=== PATIENT | female | born 1965 | race Caucasian/White ===

== ENCOUNTER 2016-09-15 09:03 | Emergency (ER) | payer OTHER | END 2016-09-15 09:08 | disposition left against medical advice (07) | LOC: CED 09:03 | DX: Z53.21 Procedure and treatment not carried out due to patient leaving prior to being seen by health care provider (principal) ==

== ENCOUNTER 2017-05-02 02:52 | Inpatient (IN) | payer OTHER ==
[2017-05-02] MEDS ORDERED: NS 1,000 ML IV ONE (03:09)
[2017-05-02] MEDS ORDERED: FAMOTIDINE 20 MG/NACL 50 ML IV ONE (03:15)
[2017-05-02] MEDS ORDERED: KETOROLAC 15 MG/1 ML SDV IVP ONE (03:15)
[2017-05-02] MEDS ORDERED: ONDANSETRON 4 MG/2 ML VIAL IVP ONE (03:15)
[2017-05-02 03:23] LABS: PLATELET COUNT 318 10^3/uL (150-400)
--- NOTE | 2017-05-02 05:20 | EDPHY ---
H & P Stated Complaint: GALLBLADDER ATTACK ACID REFLUS AND BURNING THROAT Time Seen by Provider: 05/02/17 03:06 HPI/ROS: HPI The patient presents with right upper quadrant pain, nausea. The patient has had intermittent right upper quadrant pain after meals for the last 6 months which she has self-diagnosed as "gallbladder attacks". Today, she ate chicken salad at noon. At about 4:00 p.m. she began to experience right upper quadrant abdominal pain which lasted until about 10:00 p.m.. She is able to sleep for a few hours and then awoke at midnight with more severe pain which radiated into her throat and feels like a burning sensation. She feels nauseated and is not able to take anything by mouth. She has not vomited. Her pain is now continuous and is improved when she sits up. REVIEW OF SYSTEMS Constitutional: No fever, no chills. Eyes: No discharge. ENT: No sore throat. Cardiovascular: No chest pain, no palpitations. Respiratory: No cough, no shortness of breath. Gastrointestinal: See HPI Genitourinary: No hematuria. Musculoskeletal: No back pain. Skin: No rashes. Neurological: No headache. PMHx: Obesity, has not seen a medical doctor in 4 years Soc Hx: Lives at home with PHYSICAL General Appearance: Alert, no distress Eyes: Pupils equal and round no pallor or injection ENT, Mouth: Mucous membranes moist Respiratory: There are no retractions, lungs are clear to auscultation Cardiovascular: Regular rate and rhythm Gastrointestinal: Abdomen is soft with mild tenderness in the epigastrium and right upper quadrant Neurological: A&O, moves all extremities Skin: Warm and dry, no rashes Musculoskeletal: Neck is supple non tender Extremities: symmetrical, full range of motion Psychiatric: Patient is oriented X 3, there is no agitation Source: Patient Exam Limitations: No limitations - Personal History LMP (Females 10-55): Hysterectomy Current Tetanus/Diphtheria Vaccine: Unsure Current Tetanus Diphtheria and Acellular Pertussis (TDAP): Unsure - Medical/Surgical History Hx Asthma: No Hx Chronic Respiratory Disease: No Hx Diabetes: No Hx Cardiac Disease: No Hx Renal Disease: No Hx Cirrhosis: No Hx Alcoholism: No Hx HIV/AIDS: No Hx Splenectomy or Spleen Trauma: No Other PMH: PARTIAL HYSTERECTOMY - Social History Smoking Status: Never smoked Constitutional: Initial Vital Signs Temperature (C) 36.8 C 05/02/17 02:58 Heart Rate 90 05/02/17 02:58 Respiratory Rate 18 05/02/17 02:58 Blood Pressure 142/95 H 05/02/17 02:58 O2 Sat (%) 95 05/02/17 02:58 O2 Delivery Mode Room Air O2 (L/minute) 2 Allergies/Adverse Reactions: iodine Allergy (Verified 05/03/17 15:11) Itching metronidazole [From Flagyl] Allergy (Verified 05/03/17 15:11) Itching Home Medications: Medication Instructions Recorded Acetaminophen [Tylenol 325mg (*)] 650 mg PO DAILY PRN 05/02/17 Herbals/Supplements -Info Only 1 ea PO DAILY 05/02/17 Medical Decision Making - Diagnostics Imaging Results: Imaging Impressions Fluoroscopy 05/03/17 08:59 Impression: Intraoperative fluoroscopy, as above. Lumbar Spine CT 05/03/17 11:01 Impression: 1. Mild disk space narrowing with anterior marginal osteophytes lower thoracic spine. 2. No disk bulge or protrusion. 3. Facet hypertrophy most prominent at L5-S1 with associated mild bilateral neural foraminal stenoses. 4. Left renal nonobstructive nephrolithiasis. 5. Incidental left adrenal adenoma. Consider endocrine consult for 24 hour urinary free cortisol or dexamethasone suppression test, 24 hour urinary metanephrines and catecholamines and if hypertensive, plasma aldosterone and plasma renin levels. If symptoms worsen, additional imaging may be necessary. 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 On exam, she is certainly uncomfortable appearing with epigastric tenderness. Differential diagnosis includes biliary colic, cholecystitis, gastritis, chronic pain is a consideration given her history. In the emergency department, patient received pain medication. Basic labs were checked and were unremarkable. I consulted with the on-call general surgeon Dr. Nevarez who will see the patient in consultation. She does think that the patient may require in-patient: Cystectomy. We will hold the patient's anticoagulant. I consulted with the hospitalist Dr. Wright who will admit the patient. - Data Points Laboratory Results: Laboratory Results 05/02/17 03:18 05/02/17 03:18 Medications Given: Acetaminophen (Tylenol) 650 mg PO Q4HRS PRN PRN Reason: Pain, Mild/Fever, Can Take PO Stop: 10/29/17 05:26 Last Admin: 05/03/17 01:47 Dose: 650 mg Cyclobenzaprine HCl (Flexeril) 10 mg PO TID PRN PRN Reason: pain Stop: 10/30/17 08:59 Last Admin: 05/03/17 06:20 Dose: 10 mg Hydromorphone HCl (Dilaudid) 2 mg PO Q4HRS PRN PRN Reason: Pain, Severe Able to Take PO Stop: 05/12/17 05:26 Last Admin: 05/03/17 21:53 Dose: 2 mg Hydromorphone HCl (Dilaudid) 0.2 - 0.4 mg IVP Q4HRS PRN PRN Reason: Pain, Severe Unable to Take PO Stop: 05/12/17 05:26 Last Admin: 05/03/17 07:05 Dose: 0.4 mg Sodium Chloride (Ns) 1,000 mls @ 100 mls/hr IV CONT ROD Stop: 10/29/17 06:59 Last Admin: 05/03/17 18:45 Dose: 1,000 mls Ketorolac Tromethamine (Toradol) 15 mg IVP Q6HRS ROD Stop: 05/08/17 17:59 Last Admin: 05/03/17 18:41 Dose: 15 mg Lorazepam (Ativan Injection) 0.5 mg IV Q4 PRN PRN Reason: ANXIETY Stop: 10/30/17 08:33 Last Admin: 05/03/17 09:12 Dose: 0.5 mg Ondansetron HCl (Zofran) 4 mg IVP Q4HRS PRN PRN Reason: Nausea/Vomiting, Can't Take PO Stop: 10/29/17 05:26 Last Admin: 05/03/17 07:35 Dose: 4 mg Zolpidem Tartrate (Ambien) 5 mg PO HS PRN PRN Reason: Sleep/Insomnia Stop: 10/29/17 18:09 Last Admin: 05/03/17 01:47 Dose: 5 mg Discontinued Medications Bupivacaine HCl (Sensorcaine 0.25% Sdv) Confirm Administered Dose 30 ml .ROUTE .[facility] ONE Stop: 05/03/17 10:47 Last Admin: 05/03/17 16:21 Dose: 30 ml Fentanyl (Sublimaze) 25 - 100 mcg IVP Q5M PRN PRN Reason: PACU, IMMEDIATE Pain control Stop: 05/03/17 18:29 Last Admin: 05/03/17 18:04 Dose: 50 mcg Sodium Chloride (Ns) 1,000 mls @ 0 mls/hr IV EDNOW ONE; Wide Open PRN Reason: Protocol Stop: 05/02/17 03:10 Last Admin: 05/02/17 03:21 Dose: 1,000 mls Famotidine/Sodium Chloride (Pepcid 20 Mg (Premix)) 50 mls @ 200 mls/hr IV EDNOW ONE Stop: 05/02/17 03:29 Last Admin: 05/02/17 03:23 Dose: 50 mls Lactated Ringer's (Lr) 1,000 mls @ 0 mls/hr IV ONCE ONE PRN Reason: KVO Stop: 05/03/17 15:10 Last Admin: 05/03/17 18:31 Dose: Not Given Iopamidol (Isovue-M 300) Confirm Administered Dose 30 ml .ROUTE .[facility]-MED ONE Stop: 05/03/17 11:02 Last Admin: 05/03/17 16:20 Dose: 30 ml Ketorolac Tromethamine (Toradol) 15 mg IVP EDNOW ONE Stop: 05/02/17 03:16 Last Admin: 05/02/17 03:23 Dose: 15 mg Lorazepam (Ativan Injection) 1 mg IVP ONCE ONE Stop: 05/02/17 12:01 Last Admin: 05/02/17 11:59 Dose: 1 mg Midazolam HCl (Versed) 2 mg IVP ONCALL ONE Stop: 05/03/17 15:49 Last Admin: 05/03/17 15:52 Dose: 2 mg Ondansetron HCl (Zofran) 4 mg IVP EDNOW ONE Stop: 05/02/17 03:16 Last Admin: 05/02/17 03:23 Dose: 4 mg Departure - Departure Disposition: [facility] Acute Clinical Impression: Porcelain gallbladder, Epigastric abdominal pain Condition: Fair
[2017-05-02] MEDS ORDERED: HYDROmorphONE/DILAUDID 2 MG TAB PO PRN (05:27)
[2017-05-02] MEDS ORDERED: HYDROmorphONE/DILAUDID 1 MG/ML INJ IVP PRN (05:27)
[2017-05-02] MEDS ORDERED: ONDANSETRON DISINTEGRATING 4 MG TAB PO PRN (05:27)
[2017-05-02] MEDS ORDERED: ACETAMINOPHEN 325 MG TAB PO PRN (05:27)
[2017-05-02] MEDS ORDERED: ONDANSETRON 4 MG/2 ML VIAL IVP PRN (05:27)
--- NOTE | 2017-05-02 05:48 | PDGENHP ---
History and Physical - Chief Complaint Abdominal pain - History of Present Illness 51 yo F w/ no significant PMHx presents with abdominal pain. Patient states she had lunch around noon (chicken salad sandwich). Then, around 4 PM, she had severe RUQ abdominal pain that she describes as worse than childbirth. She has had similar pain before and has been told it was gallbladder related. In the ED RUQ US was notable for significant gallstone burden without clear signs of cholecystitis. However, LFTs notable for significant hepatic inflammation of uncertain etiology. Patient is being admitted for surgical consultation and further work-up. History Information - Allergies/Home Medication List Allergies/Adverse Reactions: iodine Allergy (Verified 05/02/17 03:00) metronidazole [From Flagyl] Allergy (Verified 05/02/17 03:00) Home Medications: NK [No Known Home Meds] 05/02/17 [Last Taken Unknown] I have personally reviewed and updated: family history, medical history - Past Medical History no pertinent PMH - Family History Additional family history: Adopted, does not know family history - Social History Smoking Status: Never smoked Review of Systems Review of Systems: ROS: 10pt was reviewed & negative except for what was stated in HPI & below Physical Exam Physical Exam: Temp Pulse Resp BP Pulse Ox 36.8 C 75 16 149/103 H 95 05/02/17 02:58 05/02/17 04:59 05/02/17 04:59 05/02/17 04:59 05/02/17 04:59 Constitutional: no apparent distress, not in pain Eyes: PERRL, EOMI Ears, Nose, Mouth, Throat: moist mucous membranes, no oral mucosal ulcers Cardiovascular: regular rate and rhythym, no murmur, rub, or gallop Respiratory: no respiratory distress, clear to auscultation Gastrointestinal: normoactive bowel sounds, soft, non-tender abdomen, No gillis' s sign Skin: warm, normal color Musculoskeletal: full muscle strength, no muscle tenderness Neurologic: AAOx3, CN II-XII Intact Psychiatric: interacting appropriately, not anxious Lab Data & Imaging Review 05/02/17 03:18 05/02/17 03:18 WBC 5.66 10^3/uL (3.80-9.50) 05/02/17 03:18 RBC 5.36 10^6/uL (4.18-5.33) H 05/02/17 03:18 Hgb 16.3 g/dL (12.6-16.3) 05/02/17 03:18 Hct 48.3 % (38.0-47.0) H 05/02/17 03:18 MCV 90.1 fL (81.5-99.8) 05/02/17 03:18 MCH 30.4 pg (27.9-34.1) 05/02/17 03:18 MCHC 33.7 g/dL (32.4-36.7) 05/02/17 03:18 RDW 13.4 % (11.5-15.2) 05/02/17 03:18 Plt Count 318 10^3/uL (150-400) 05/02/17 03:18 MPV 9.2 fL (8.7-11.7) 05/02/17 03:18 Neut % (Auto) 63.3 % (39.3-74.2) 05/02/17 03:18 Lymph % (Auto) 27.4 % (15.0-45.0) 05/02/17 03:18 [place] % (Auto) 8.0 % (4.5-13.0) 05/02/17 03:18 Eos % (Auto) 0.5 % (0.6-7.6) L 05/02/17 03:18 Baso % (Auto) 0.4 % (0.3-1.7) 05/02/17 03:18 Nucleat RBC Rel Count 0.0 % (0.0-0.2) 05/02/17 03:18 Absolute Neuts (auto) 3.59 10^3/uL (1.70-6.50) 05/02/17 03:18 Absolute Lymphs (auto) 1.55 10^3/uL (1.00-3.00) 05/02/17 03:18 Absolute Monos (auto) 0.45 10^3/uL (0.30-0.80) 05/02/17 03:18 Absolute Eos (auto) 0.03 10^3/uL (0.03-0.40) 05/02/17 03:18 Absolute Basos (auto) 0.02 10^3/uL (0.02-0.10) 05/02/17 03:18 Absolute Nucleated RBC 0.00 10^3/uL (0-0.01) 05/02/17 03:18 Immature Gran % 0.4 % (0.0-1.1) 05/02/17 03:18 Immature Gran # 0.02 10^3/uL (0.00-0.10) 05/02/17 03:18 Sodium 144 mEq/L (135-145) 05/02/17 03:18 Potassium 4.4 mEq/L (3.5-5.2) 05/02/17 03:18 Chloride 103 mEq/L (97-110) 05/02/17 03:18 Carbon Dioxide 24 mEq/l (22-31) 05/02/17 03:18 Anion Gap 17 mEq/L (8-16) H 05/02/17 03:18 BUN 14 mg/dL (7-23) 05/02/17 03:18 Creatinine 0.6 mg/dL (0.6-1.0) 05/02/17 03:18 Estimated GFR > 60 05/02/17 03:18 Glucose 117 mg/dL (70-100) H 05/02/17 03:18 Calcium 10.1 mg/dL (8.5-10.4) 05/02/17 03:18 Total Bilirubin 2.5 mg/dL (0.1-1.4) H 05/02/17 03:18 Conjugated Bilirubin 1.4 mg/dL (0.0-0.5) H 05/02/17 03:18 Unconjugated Bilirubin 1.1 mg/dL (0.0-1.1) 05/02/17 03:18 AST 2077 IU/L (14-46) H 05/02/17 03:18 ALT 1180 IU/L (9-52) H 05/02/17 03:18 Alkaline Phosphatase 167 IU/L (38-126) H 05/02/17 03:18 Total Protein 8.3 g/dL (6.3-8.2) H 05/02/17 03:18 Albumin 4.6 g/dL (3.5-5.0) 05/02/17 03:18 Lipase 277 IU/L (23-300) 05/02/17 03:18 Imaging Review: RUQ U/S, preliminary read: CHOLELITHIASIS WITH GB COMPLETELY FILLED WITH 3 LARGE GALLSTONES, MILD WALL THICK AT 3MM NO PERICHOLECYSTIC FLUID CBD BORDERLINE AT 6MM HEPATOMEGALY AND HEPATIC STEATOSIS DISCUSSED WITH DR TOLENTINO AT 0450 Assessment & Plan Assessment: 51 yo F presenting with abdominal pain and abnormal LFTs. Plan: 1. Abdominal pain - Most likely related to gallstones noting clinical picture and U/S results revealing heavy gallstone burden. Does also have significant transaminitis of unclear significance. No infectious signs or symptoms currently to suggest cholangitis. - Dilaudid PRN for pain control - mIVF, maintain NPO - Surgery consulted, appreciate assistance 2. Abnormal LFTs - Significant transaminitis with mild elevation in bilirubin. Unclear etiology; possible related to above but would be atypical presentation. Choledocholithiasis and cholangitis are other possibilities but deemed less likely at least at this point. RUQ U/S did show hepatomegaly and fatty liver so this may be playing a role. - GI consultation - Would monitor bilirubin and consider ERCP if rising - APAP level, acute hep panel for brief additional work-up Diet - NPO Code - Full Ppx - SCDs Dispo - Admit to observation status
[2017-05-02] MEDS: NS 1,000 ML IV SCH ×2 (07:12→17:52)
--- NOTE | 2017-05-02 08:41 | HOSPPROG ---
Hospitalist Progress Note Assessment/Plan: I Patient is a 51-year-old female who presented with abdominal pain and elevated liver enzymes. * abdominal pain -most likely related to gallstones -ultrasound reveals cholelithiasis with gallbladder completely filled with 3 large gallstones, no hal cholecystic fluid common bile duct borderline at 6 mm with associated hepatomegaly and hepatic steatosis -reviewed her care with surgery they, they will see her * elevated liver enzymes -spoke to GI and the recommendation is to get an MRCP -hepatitis panel pending -Tylenol level stable *Diet - NPO Plan: reviewed her care with Dr Shearer and Dr Mendiola, will get an MRCP. >30 minutes today talking with patient and coordinating her care. Subjective: Antionette is feeling much better today, no complaints, abdominal pain is much improved. Objective: Vital Signs Temp Pulse Resp BP Pulse Ox 36.7 C 70 16 143/89 H 92 05/02/17 07:22 05/02/17 07:22 05/02/17 07:22 05/02/17 07:22 05/02/17 07:22 05/01/17 05/02/17 05/03/17 05:59 05:59 05:59 Intake Total 1000 Balance 1000 - Physical Exam Constitutional: no apparent distress, appears nourished Eyes: PERRL Ears, Nose, Mouth, Throat: hearing normal Respiratory: no respiratory distress Gastrointestinal: normoactive bowel sounds Skin: warm Neurologic: AAOx3 Psychiatric: interacting appropriately ICD10 Worksheet Patient Problems: Problems Problem Status Onset Cholecystitis Acute Transaminitis Acute
--- NOTE | 2017-05-02 10:08 | GCON ---
[f rep st] CONSULTATION DATE OF CONSULTATION: 05/02/2017 CHIEF COMPLAINT: Abdominal pain. HISTORY OF PRESENT ILLNESS: This is a 51-year-old female, who presented to the hospital early this morning complaining of persistent right upper quadrant pain. The patient states that she was in her usual state of health, ate a chicken salad sandwich for lunch, and approximately early afternoon began to have some persistent right upper quadrant pain which persisted through the night which prompted her presentation here. She states that in addition to this attack she has had 2 similar attacks over the last 2 months, all limited over time and got better with no oral intake. She states in addition to the pain which she initially described as epigastric in nature without radiation, 7/ 10 in intensity, described as a sharp, colicky type pain, she denies having any nausea or vomiting. She also denies having fevers or chills. She states that this episode is similar to the one she has had in the past although it lasted longer and it is more painful. PAST MEDICAL HISTORY: Uterine adenomyosis. PAST SURGICAL HISTORY: Breast augmentation, subsequent breast implant removal and laparoscopic hysterectomy, ovarian sparing. MEDICATIONS: Reviewed. FAMILY HISTORY: Noncontributory. The patient is adopted. SOCIAL HISTORY: Denies illicit drug use. No recent rare food. Does not use IV drugs. Does not abuse alcohol. REVIEW OF SYSTEMS: A full 10-point review of systems was performed. PHYSICAL EXAM: VITAL SIGNS: Temperature 36.7, blood pressure 143/89, heart rate of 70 and she is 92% on room air. CONSTITUTIONAL: She is in no apparent distress. She is comfortable. EYES: Her pupils are equal, round, and reactive to light and accommodation. She has anicteric sclerae. EARS, NOSE, MOUTH, THROAT: She has moist mucous membranes. Her hearing is normal. She has no oral mucosal ulcers. CARDIOVASCULAR: She has a regular rate and rhythm without murmurs. RESPIRATORY: She has no respiratory distress, rales, or rhonchi. GI: She has normoactive bowel sounds. She is soft, nondistended, nontender. Negative Angel sign. SKIN: Warm, normal color, no rashes. MUSCULOSKELETAL: Full strength. No muscle tenderness. Normal joint range of motion. NEUROLOGIC: She is alert and oriented x3. Her cranial nerves 2-12 are intact. She has no weakness or numbness. PSYCH: She is interacting appropriately. She does not appear anxious and she is not encephalopathic. LYMPH, HEME AND IMMUNOLOGIC: She has no cervical, groin or supraclavicular lymphadenopathy appreciated. MEDICAL DECISION MAKING: White blood cell count normal at 5, H and H stable at 16 and 48. Her platelets are 318. Chemistries are significant for an elevated glucose at 117, an elevated total bilirubin at 2.5, mostly conjugated at 1.4. AST of 2077 and an ALT of 1180 with an elevated alkaline phosphatase at 167. Toxicology is negative for acute acetaminophen intoxication. Her hepatitis panel is currently pending. IMAGING: Abdominal ultrasound which was personally reviewed by me which shows multiple large gallstones within the gallbladder wall, normal gallbladder wall thickening, no pericholecystic fluid, borderline enlargement of the common bile duct at 6 mm without any other significant findings. ASSESSMENT AND PLAN: A 51-year-old female with acute right upper quadrant pain and acute hepatitis. I told the patient that I reviewed her films and discussed them with her in her hospital room this morning. I told her it would be rare to have drastic elevations in AST and ALT with gallstone disease and will have GI evaluate her for possible choledocholithiasis and other entities. Given her history of multiple attacks within the last month she likely does have biliary colic versus cholecystitis and will need cholecystectomy after we get a better idea what is causing her enzyme elevation. Will follow, plan cholecystectomy this admission when appropriate. /[id number]/MODL MTDD
[2017-05-02] MEDS ORDERED: GADOBUTROL 10 ML VIAL IVP ONE (11:35)
[2017-05-02] MEDS ORDERED: LORazepam 2 MG/ML INJ IVP ONE (12:00)
--- NOTE | 2017-05-02 13:14 | GCON ---
[f rep st] CONSULTATION GASTROINTESTINAL CONSULTATION DATE OF CONSULTATION: 05/02/2017 REASON FOR CONSULTATION: Epigastric abdominal pain with abnormal liver enzymes. HISTORY OF PRESENT ILLNESS: Antionette is a 51-year-old female previously in good health, who was admitted to the hospital early this morning with a 6 hour history of acute onset of severe epigastric abdominal pain. This resolved after hospitalization. She has had previous episodes of this right upper quadrant abdominal pain that have passed on their own. She denies any alcohol consumption, any dietary supplements, vitamins, or herbs. She has never had a history of hepatitis. I was asked by Bere Mendes NP to see the patient for further evaluation. MEDICATIONS: She was on no medications prior to admission. ALLERGIES: Allergic to iodine and metronidazole. PAST MEDICAL HISTORY: Unremarkable. PAST SURGICAL HISTORY: Is negative. She has had no prior screening colonoscopy. FAMILY HISTORY: Unknown as she is adopted. SOCIAL HISTORY: She does not smoke tobacco or drink alcohol. She denies any nonsteroidal anti-inflammatory drug use. REVIEW OF SYSTEMS: Other than the HPI, were negative for comprehensive review of systems. PHYSICAL EXAMINATION: VITAL SIGNS: On my examination today, temperature is 37.1 Celsius, pulse 71 regular, blood pressure 153/97, respiratory rate is 16, O2 saturation 96% on room air. GENERAL: A well-developed, mildly obese female in no apparent distress. INTEGUMENT: Clear. HEENT: Head atraumatic, normocephalic. Pupils equal, round, reactive to light. EOMs intact. Sclerae nonicteric. Nares patent. Mucous membranes moist. Dentition good. NECK: Supple. Trachea midline. LYMPHATICS: No cervical or axillary adenopathy. PULMONARY: Lungs clear to percussion and auscultation. CARDIOVASCULAR: Regular rhythm rate. Normal S1, S2 without murmur. Peripheral pulses strong bilaterally. No pedal edema. GASTROINTESTINAL: Abdomen supple. Positive bowel sounds. Mildly obese. No liver or spleen tip palpable. No masses or tenderness noted. No rebound tenderness is noted. EXTREMITIES: Without deformities. NEUROLOGIC: Patient was alert, oriented x3. There are no focal neurologic deficits. LABS: White count 5.66, hemoglobin 16.3, hematocrit 48.3, platelets 318,000. Electrolytes normal with the exception of anion gap of 17 and glucose was 117. Total bilirubin 2.5, conjugated 1.4, unconjugated 1.1. AST 2077, ALT 1180, ALP 167, albumin 4.6, lipase 277. Acetaminophen level less than 10. Hepatitis A, B and C serologies pending. Right upper quadrant ultrasound revealed cholelithiasis with gallbladder wall thickening. There are 3 dominant gallstones in the gallbladder fossa measuring up to 1.8 cm. The common bile duct was measured at 6 mm in maximal diameter. There was some mild hepatomegaly and hepatic steatosis. IMPRESSION: 1. Right upper quadrant abdominal pain, cholelithiasis and thickened gallbladder wall consistent with acute cholecystitis/cholelithiasis. 2. Elevated bilirubin and marked elevated AST and ALT, atypical presentation for acute cholecystitis, albeit does not exclude the same. Differential diagnosis includes acute viral hepatitis, less likely contributing factors would be fatty liver. 3. Common bile duct of 6 mm without evidence of common bile duct stone on ultrasound, still could represent a small common bile duct stone. RECOMMENDATIONS: 1. MRCP. 2. Viral serology. 3. If common bile duct stone noted on MRCP, we will proceed with ERCP, papillotomy and stone extraction. 4. If MRCP is unrevealing and viral serology negative, would recommend surgical intervention with laparoscopic cholecystectomy. /[id number]/MODL MTDD
--- NOTE | 2017-05-02 14:47 | ASMTCMCOM ---
CM Note CM Note Notes: Spoke w/RN, anticipate pt will dc home w/support of her when medically stable. CM available for any changes. DC Plan: Home independent Date Signed: 05/02/2017 02:46 PM Electronically Signed By:Karla Garcia RN
--- NOTE | 2017-05-02 15:13 | SOAPPROG ---
[facility] Progress Note Assessment/Plan: Assessment/Plan: - reviewed MR results. No choledocholithiasis or other obstructive findings - plan will be to await hepatitis panel results, allow liver enzymes to downtrend. Lap elliott this admission. - discussed with patients nurse 05/02/17 15:11 Objective: Vital Signs Temp Pulse Resp BP Pulse Ox 37.1 C 71 16 153/97 H 96 05/02/17 11:13 05/02/17 11:13 05/02/17 11:13 05/02/17 11:13 05/02/17 11:13 05/01/17 05/02/17 05/03/17 05:59 05:59 05:59 Intake Total 1000 Balance 1000 ICD10 Worksheet Patient Problems: Problems Problem Status Onset Cholecystitis Acute Transaminitis Acute - ICD10 Problem Qualifiers (1) Cholecystitis (2) Transaminitis
[2017-05-02] MEDS ORDERED: ZOLPIDEM TARTRATE 5 MG TAB PO PRN (18:10)
[2017-05-02 19:39] LABS: HEPATITIS B SURFACE ANTIGEN NEGATIVE (NEGATIVE)
[2017-05-02 19:45] LABS: HEPATITIS A ANTIBODY IGM (BCH) NEGATIVE (NEGATIVE); HEPATITIS B CORE AB IGM NEGATIVE (NEGATIVE)
[2017-05-02 19:57] LABS: HEPATITIS C ANTIBODY TOTAL NEGATIVE (NEGATIVE)
[2017-05-03] MEDS ORDERED: CYCLOBENZAPRINE 10 MG TAB PO PRN (06:14)
--- NOTE | 2017-05-03 08:14 | SOAPPROG ---
SOAP Progress Note Assessment/Plan: Assessment: 1. gallstones 2. elevated transaminases/bili initially elevated and now normal-probable transient choledocholithiasis 3.left lower back pain requiring narcotics 4. headache-probable tension 5. nausea ? secondary to dilaudid 6. obesity 7. hypertension Plan: We discussed lap cholecystectomy, operative cholangiogram and possible liver biopsy I suspect transient choledocholithiasis and hepatic steatosis We discussed the risks, expected recovery and need for general anesthesia Informed consent was obtained Further workup of back pain, headache, hypertension and management of obesity per medicine/she does not have a PCP and does not go to docters in general S MD Chad, FACS 05/03/17 09:14 Subjective: c/o Left lower back pain requiring Dilaudid, secondary headache and nausea. denies abdominal pain Objective: Vital Signs Temp Pulse Resp BP Pulse Ox 36.7 C 67 12 142/88 H 92 05/03/17 07:40 05/03/17 07:40 05/03/17 07:40 05/03/17 07:40 05/03/17 07:40 05/02/17 05/03/17 05/04/17 05:59 05:59 05:59 Intake Total 1000 550 Balance 1000 550 Physical Exam - Physical Exam General Appearance: moderate distress EENT: other (alopecia) Neck: non-tender Respiratory: lungs clear, normal breath sounds Cardiac/Chest: regular rate, rhythm Abdomen: non-tender, soft, other (no hepatospenomegaly) Pelvic Exam: deferred Rectal: deferred Back: Other (left lower lumbar tenderness/paraspinous) Neuro/Psych: depressed affect, other (eyes closed, appears uncomfortable) ICD10 Worksheet Patient Problems: Problems Problem Status Onset Back pain Acute Cholecystitis Acute Hypertension Acute Obesity (BMI 30.0-34.9) Acute Transaminitis Acute - ICD10 Problem Qualifiers (1) Hypertension Qualifiers: Hypertension type: essential hypertension Qualified Code(s): I10 - Essential (primary) hypertension (2) Back pain (3) Obesity (BMI 30.0-34.9)
[2017-05-03] MEDS ORDERED: LORazepam 2 MG/ML INJ IV PRN (08:34)
--- NOTE | 2017-05-03 10:12 | SOAPPROG ---
SOAP Progress Note Assessment/Plan: Assessment: Plan: 05/03/17 10:10 A/P 1. RUQ abdominal pain- with nausea. Elevated LFTs. MRCP negative for stone. LFTs significant drop. Surgical plans with IOC in process. GI will follow. Subjective: cc: Follow up LFTs Still complaining of pain and nausea. Objective: Vital Signs Temp Pulse Resp BP Pulse Ox 36.7 C 67 12 142/88 H 92 05/03/17 07:40 05/03/17 07:40 05/03/17 07:40 05/03/17 07:40 05/03/17 07:40 05/02/17 05/03/17 05/04/17 05:59 05:59 05:59 Intake Total 1000 550 Balance 1000 550 Physical Exam - Physical Exam General Appearance: alert, mild distress EENT: No scleral icterus (R), No scleral icterus (L) Respiratory: lungs clear, normal breath sounds, No rales, No rhonchi Cardiac/Chest: regular rate, rhythm Abdomen: normal bowel sounds, soft, No non-tender, No distended, No guarding Skin: normal color Neuro/Psych: no motor/sensory deficits, oriented x 3, No abnormal tomographic tech II-XII ICD10 Worksheet Patient Problems: Problems Problem Status Onset Cholecystitis Acute Transaminitis Acute Hypertension Acute Back pain Acute Obesity (BMI 30.0-34.9) Acute
[2017-05-03] MEDS ORDERED: BUPIVACAINE 0.25% 30 ML SDV ONE (10:46)
[2017-05-03] MEDS ORDERED: IOPAMIDOL (ISOVUE-M 300) 15 ML VIAL ONE (11:01)
--- NOTE | 2017-05-03 13:05 | HOSPPROG ---
Hospitalist Progress Note Assessment/Plan: I Patient is a 51-year-old female who presented with abdominal pain and elevated liver enzymes. * abdominal pain/ cholelithiasis -not having significant abdominal pain today but headache pain *Back pain -imaging ordered * elevated liver enzymes -better today -hepatitis panel negative -Tylenol level stable *headache -very anxious about surgery, trial of low dose ativan *Diet - NPO Plan: reviewed her care with Dr Bonilla, to OR today for a cholecystectomy Subjective: Antoinette is tearful about her headache, concerned about surgery. Objective: Vital Signs Temp Pulse Resp BP Pulse Ox 36.7 C 77 16 133/83 H 91 L 05/03/17 11:53 05/03/17 11:53 05/03/17 11:53 05/03/17 11:53 05/03/17 11:53 05/02/17 05/03/17 05/04/17 05:59 05:59 05:59 Intake Total 1000 550 Balance 1000 550 - Physical Exam Constitutional: uncomfortable, No not in pain Eyes: PERRL Ears, Nose, Mouth, Throat: hearing normal Cardiovascular: regular rate and rhythym Respiratory: no respiratory distress Gastrointestinal: normoactive bowel sounds Skin: warm, other (flushed) Neurologic: AAOx3 Psychiatric: interacting appropriately, anxious ICD10 Worksheet Patient Problems: Problems Problem Status Onset Back pain Acute Cholecystitis Acute Hypertension Acute Obesity (BMI 30.0-34.9) Acute Transaminitis Acute
[2017-05-03] MEDS ORDERED: LR 1,000 ML IV ONE (15:09)
[2017-05-03] MEDS ORDERED: ceFAZolin 2 GM/SWFI 20 ML SYR IVP ONE (15:30)
[2017-05-03] MEDS ORDERED: MIDAZOLAM 2 MG/2 ML VIAL IVP ONE (15:48)
[2017-05-03] MEDS ORDERED: MIDAZOLAM 2 MG/2 ML VIAL ONE (15:48)
[2017-05-03] MEDS ORDERED: PROPOFOL/EMULSION 500 MG/50 ML BOTTLE IV ONE (15:50)
[2017-05-03] MEDS ORDERED: fentaNYL 100 MCG/2 ML INJ ONE ×3 (15:55→17:53)
[2017-05-03] MEDS ORDERED: SUGAMMADEX SODIUM 200 MG/2 ML VIAL IVP ONE ×2 (17:02)
[2017-05-03] MEDS ORDERED: NALOXONE HCL 0.4 MG/ML INJ IVP PRN (17:29)
[2017-05-03] MEDS ORDERED: ONDANSETRON 4 MG/2 ML VIAL IVP PRN (17:29)
[2017-05-03] MEDS ORDERED: ALBUTEROL 3 ML DEYVIAL IH PRN (17:29)
[2017-05-03] MEDS ORDERED: DEXAMETHASONE 4 MG/ML VIAL IVP PRN (17:29)
[2017-05-03] MEDS ORDERED: HYDROmorphONE/DILAUDID 1 MG/ML INJ IVP PRN (17:29)
--- NOTE | 2017-05-03 17:29 | PDANEPAE ---
ANE History of Present Illness here for lap elliott HENRY Past Medical History - Cardiovascular History Hx Hypertension: No Hx Arrhythmias: No Hx Chest Pain: No Hx Coronary Artery / Peripheral Vascular Disease: No Hx CHF / Valvular Disease: No Hx Palpitations: No - Pulmonary History Hx COPD: No Hx Asthma/Reactive Airway Disease: No Hx Recent Upper Respiratory Infection: No Hx Oxygen in Use at Home: No Hx Sleep Apnea: No Sleep Apnea Screening Result - Last Documented: Negative - Endocrine History Hx Diabetes: No ANE Review of Systems Review of systems is: negative Review of Systems: - Exercise capacity Exercise capacity: >=4 METS ANE Patient History - Allergies Allergies/Adverse Reactions: iodine Allergy (Verified 05/03/17 15:11) Itching metronidazole [From Flagyl] Allergy (Verified 05/03/17 15:11) Itching - Home Medications Home medications: home medication list seen and reviewed Home Medications: Acetaminophen [Tylenol 325mg (*)] 650 mg PO DAILY PRN 05/02/17 [Last Taken 04/29] Herbals/Supplements -Info Only 1 ea PO DAILY 05/02/17 [Last Taken Unknown] - NPO status NPO Status: no food or drink >8 hours NPO Since - Liquids (Date): 05/02/17 NPO Since - Liquids (Time): 23:59 NPO Since - Solids (Date): 05/02/17 NPO Since - Solids (Time): 23:59 - Anes Hx Anes Hx: no prior problems - Smoking Hx Smoking Status: Never smoked ANE Labs/Vital Signs - Labs Result Diagrams: 05/02/17 03:18 05/02/17 03:18 - Vital Signs Vital Signs: reviewed preoperatively; see RN documention for details Blood Pressure: 155/93 Heart Rate: 76 Respiratory Rate: 15 O2 Sat (%): 95 Height: 167.64 cm Weight: 90.718 kg ANE Physical Exam - Airway Neck exam: FROM Mallampati Score: Class 1 - Pulmonary Pulmonary: no respiratory distress - Cardiovascular Cardiovascular: regular rate and rhythym - ASA Status ASA Status: II ANE Anesthesia Plan Anesthesia Plan: general endotracheal anesthesia
--- NOTE | 2017-05-03 17:29 | POSTANESTH ---
Post Anesthetic Evaluation Cardiovascular Status: Normal, Stable Respiratory Status: Normal, Stable Level of Consciousness/Mental Status: Can Participate in Eval Pain Control: Adequate, Prn Tx Ordered Nausea/Vomiting Control: Adequate, Prn Tx Ordered Complications Possibly Related to Anesthesia: None Noted
[2017-05-03] MEDS: fentaNYL 100 MCG/2 ML INJ IVP PRN ×2 (17:54→18:04)
[2017-05-03] MEDS ORDERED: METOCLOPRAMIDE 10 MG/2 ML VIAL IVP PRN (17:58)
[2017-05-03] MEDS ORDERED: TEMAZEPAM 15 MG CAP PO PRN (17:58)
--- NOTE | 2017-05-03 18:03 | POSTOPPROG ---
Post Op Note Date of Operation: 05/03/17 Surgeon: Adan Bonilla (, FACS) Anesthesiologist: Wood Mcdaniel MD Pre-op Diagnosis: cholelithiasis, possible choledocholithiasis Post-op Diagnosis: cholecystitis-chronic, umbilical hernia Procedure: lap elliott w/ IOC, repair umbilical hernia Findings: no evidence of distal CBD obstruction Inf/Abcess present in the surg proc area at time of surgery?: No EBL: Minimal (25ml)
--- NOTE | 2017-05-03 18:18 | PDMN ---
Medical Necessity Medical necessity: Pt meets INPT criteria per [facility]OW[facility] HAND/MD as of 05/03/17 and MCG [id number] Cholecystectomy with CBD Exploration by Laparoscopy (abd pain/cholelithiasis and elevated LFTs requiring lap elliott and intraoperative cholangiogram; est. LOS >2 MN).
[2017-05-03] MEDS: KETOROLAC 15 MG/1 ML SDV IVP SCH (18:41)
[2017-05-03] MEDS: NS 1,000 ML IV SCH (18:45)
[2017-05-03 19:08] VITALS: RESP 16
[2017-05-04] MEDS: KETOROLAC 15 MG/1 ML SDV IVP SCH ×2 (00:02→05:34)
[2017-05-04 03:56] VITALS: O2SAT 96
[2017-05-04] MEDS: NS 1,000 ML IV SCH (03:57)
[2017-05-04 05:45] LABS: PLATELET COUNT 253 10^3/uL (150-400)
--- NOTE | 2017-05-04 06:11 | GOP ---
[f rep st] OPERATIVE REPORT DATE OF OPERATION: 05/03/2017 SURGEON: Adan Bonilla MD, FACS SHIP OFFICER: Wood Mcdaniel MD PREOPERATIVE DIAGNOSIS: 1. Cholelithiasis with chronic cholecystitis. 2. Possible choledocholithiasis. POSTOPERATIVE DIAGNOSIS: 1. Chronic cholecystitis with cholelithiasis. 2. Umbilical hernia. PROCEDURE PERFORMED: 1. Laparoscopic cholecystectomy with operative cholangiogram. 2. Repair of umbilical hernia. FINDINGS: Intraoperative cholangiogram showing a mildly prominent common bile duct but no definitive evidence of choledocholithiasis. Free flow of contrast into the duodenum through a tapered distal common bile duct. Mild hepatic steatosis. No evidence of cirrhosis. An approximately 18 mm umbilical hernial defect repaired upon completion. ESTIMATED BLOOD LOSS: 25 mL. DESCRIPTION OF PROCEDURE: After informed consent was obtained, the patient was brought to the operating room and placed under general anesthesia. The abdomen was prepped and draped in the usual fashion. Before proceeding, a time-out and identification of the patient was performed. 0.25% Marcaine was used to infiltrate all incision sites. A transverse incision was made below the umbilicus and carried through skin and subcutaneous tissues. Dissection was carried out down to the umbilical stalk. A considerable umbilical hernia was discovered and this was dissected circumferentially at the fascia level and incised entering the peritoneal cavity under direct visualization. An 0 Vicryl suture was used to partially approximate the defect such that a 12 mm port could be established without leaking CO2 gas around the port. After this had been completed, pneumoperitoneum was established with CO2 gas to a pressure of 15 mmHg. The peritoneal cavity was visualized with a 30-degree, 10 mm scope. A 5 mm port was placed in the subxiphoid position to the right of the falciform ligament. A 2nd 5 mm port was placed in the right upper quadrant midclavicular line and a 3rd 5 mm port was placed in the right upper quadrant anterior-axillary line. This allowed introduction of atraumatic grasping forceps. The gallbladder was identified, noted to be chronically inflamed. It was grasped by the fundus and retracted cephalad. The infundibulum of the gallbladder was grasped with a 2nd atraumatic forceps and manipulated anteriorly and posteriorly so that the perineum could be dissected away from the cystic duct, with the Harmonic Scalpel. After the cystic duct had been cleared circumferentially where it joined the gallbladder, the cystic artery was identified posterior to this and was dispatched with a Harmonic scalpel. The proximal cystic duct closest to the gallbladder was doubly hemoclipped. The cystic duct was incised with laparoscopic scissors. A 14-gauge taut cholangiogram catheter was introduced through the right upper quadrant with a 14-gauge Angiocath and placed into the cystic ductotomy. This was secured with a hemoclip. Cholangiograms were obtained under live fluoroscopy, demonstrating free flow of contrast into the duodenum and no obvious sign of filling defect. The cholangiogram catheter was removed. The distal cystic duct was doubly hemoclipped and divided. The gallbladder was then dissected away from the liver edge using the Harmonic Scalpel with minimal blood loss. The gallbladder, after being detached, was retrieved through the umbilical port site which, although a generous fascial defect was present, this skin incision had to be extended to remove this enlarged and chronically inflamed organ. Specimen was removed from the field and submitted for permanent section. Hemostasis appeared secure within the operative site. The remainder of the peritoneum appeared unremarkable. All ports were removed. The pneumoperitoneum was evacuated. The umbilical fascial defect was repaired with interrupted 0 Vicryl sutures in a transverse fashion. The subcutaneous tissues were approximated with 3-0 Monocryl suture and the skin was closed with 4-0 Monocryl suture in a subcuticular fashion. Mastisol and Steri-Strips were applied. Needle, sponge, and instrument count were correct. COMPLICATIONS: None. /[id number]/MODL MTDD
[2017-05-04 07:31] VITALS: BP 117/68; PULSE 65; TEMP 98
--- NOTE | 2017-05-04 08:42 | HOSPPROG ---
Hospitalist Progress Note Assessment/Plan: I Patient is a 51-year-old female who presented with abdominal pain and elevated liver enzymes. * abdominal pain/ cholelithiasis , postop day 1. For cholecystectomy and repair of an umbilical hernia -feeling well today *Back pain -reviewed with her that she has some facet hypertrophy with L5-S1 with stenosis * left adrenal adenoma -reviewed this finding with her and to get follow up with the primary care provider in regards to this * elevated liver enzymes -better today -hepatitis panel negative -Tylenol level stable -to follow up with Gastroenterology * left renal nonobstructive nephrolithiasis -also reviewed this with her * obesity with a BMI of 32 *headache -resolved *Diet -eating and drinking well Plan: Dr. Bonilla discharged the patient. We discussed her care. I gave the patient a name of a primary care provider for further followup Subjective: Antionette is feeling well, very appreciative about her care at [facility]. Objective: Vital Signs Temp Pulse Resp BP Pulse Ox 36.6 C 65 16 117/68 96 05/04/17 07:28 05/04/17 07:28 05/04/17 07:28 05/04/17 07:28 05/04/17 07:28 Laboratory Results 05/04/17 05:09 05/04/17 05:09 05/03/17 05/04/17 05/05/17 05:59 05:59 05:59 Intake Total 1000 Output Total 810 Balance 190 - Physical Exam Constitutional: no apparent distress, appears nourished, not in pain Eyes: PERRL Ears, Nose, Mouth, Throat: hearing normal Respiratory: no respiratory distress Skin: warm Musculoskeletal: full muscle strength Neurologic: AAOx3 Psychiatric: interacting appropriately ICD10 Worksheet Patient Problems: Problems Problem Status Onset Back pain Acute Cholecystitis Acute Epigastric abdominal pain Acute Hypertension Acute Obesity (BMI 30.0-34.9) Acute Porcelain gallbladder Acute Transaminitis Acute
--- NOTE | 2017-05-04 08:48 | PDDCSUM ---
Discharge Summary Discharge Summary: #[id number] discharge diagnosis S MD Chad, FACS
[2017-05-04] MEDS ORDERED: ENOXAPARIN 40 MG/0.4 ML SYR SC SCH (09:00)
--- NOTE | 2017-05-04 09:47 | GDS ---
[f rep st] DISCHARGE SUMMARY DISCHARGE DIAGNOSIS: 1. Chronic cholecystitis. 2. Umbilical hernia. 3. Obesity. 4. Hypertension. 5. Elevated liver enzymes and bilirubin, probably secondary to choledocholithiasis. 6. Hepatic steatosis. 7. Chronic lumbar pain with secondary tension headaches. PROCEDURE PERFORMED: 1. Magnetic resonance cholangiopancreatography, 05/02/2017. 2. Laparoscopic cholecystectomy operative cholangiogram and repair of umbilical hernia, on 8. CONSULTATIONS DURING THIS HOSPITALIZATION: 1. General surgery, Dr. Troy Shearer. 2. Gastroenterology, Dr. Jose Mendiola and Dr. Kristian Michel. DISCHARGE MEDICATIONS: Flexeril 10 mg p.o. three times daily #30, hydromorphone 2 mg p.o. q.4 hours #30, Zofran 4 mg ODT p.o. q.4 hours p.r.n. #10. HOSPITAL COURSE: For details of admission history and physical, please see dictated summary. 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 She had this off and on for quite some time and this episode was much w orse than prior. She was found to have gallstones and gallbladder wall thickening. In addition, had markedly elevated transaminases and bilirubin with a normal lipase. [facility] GI consultation was obtained and Dr. Mendiola recommended an MRCP. This was perf ormed and showed no evidence of choledocholithiasis and mild gallbladder wall thickening but without acute inflammation. She was noted also to have hepatic steatosis. I assumed the patient's care on 0 05/03/2017, and discussed laparoscopic cholecystectomy with her and possible liver biopsy. Her primar y complaint when I met her on 03/03, was her back pain and headache and I ordered a CT scan of the deven mbar spine which showed chronic degenerative changes, no fractures and an incidental left adrenal ammon noma measuring approximately 16 x 20 mm, as well as three nonobstructive calculi in the mid and lower pole of the left kidney. I discussed her images with Neurosurgery who did not feel that she require d further acute intervention but to have her follow up as an outpatient for her significant degenerat kandi change, particularly at the L5-S1 level. The patient underwent surgery and had a negative intraoperative cholangiogram and chronic cholecystit is. Though she did have a fatty live, there was no evidence of cirrhosis and I did not perform a live r biopsy. An umbilical hernia was repaired concurrently. Following surgery, patient was advanced in her diet. She felt better the next morning, required minimal narcotic pain medicines and her liver enzymes continued to decline. Her bilirubin remained normal. She was discharged home to follow up in my office in the upcoming week, was referred to primary care through [facility] and will follow up with Dr. Arroyo's office for recommendations regarding her low back pain. Condition at time of discharge was improved. /[id number]/MODL
--- NOTE | 2017-05-04 18:06 | ASDISCHSUM ---
Discharge Information Plan Status: Medically Cleared to Leave: Discharge Date:05/04/2017 09:03 AM CM D/C Disposition:Home, Routine, Self-Care ADT D/C Disposition:Home, Routine, Self-Care Projected Discharge Date:05/04/2017 09:03 AM Transportation at D/C: Discharge Delay Reason: Follow-Up Date:05/04/2017 09:03 AM Discharge Slot: Final Diagnosis: Placement Information Patient Contact Information Contact Name:MERLENE Relationship: Address:[address] City:[place] Alternate Phone: [facility]/Zip Code:[place] [address] Email: Financial Information Financial Class:[facility] Primary Plan Desc:[employer] LOCAL Primary Plan Number:[id number] Secondary Plan Desc: Secondary Plan Number: Assessment Information [facility] CM Progress Note CM Note CM Note Notes: Spoke w/RN, anticipate pt will dc home w/support of her when medically stable. CM available for any changes. DC Plan: Home independent Date Signed: 05/02/2017 02:46 PM Electronically Signed By:Karla Garcia RN Intervention Information
== END 2017-05-04 09:03 | disposition home or self-care (01) | DRG 419 ==
LOC: INTOOBSV 05:22 → F3E 06:05 → OBSVTOIN 05-03 15:34
PROVIDERS: ADMIT Student in an Organized Health Care Education/Training Program; ATTEND Surgery
PROC: 0WQF0ZZ Repair Abdominal Wall, Open Approach (ICD-10-PCS; principal; 2017-05-03 15:30)
PROC: BF101ZZ Fluoroscopy of Bile Ducts using Low Osmolar Contrast (ICD-10-PCS; principal; 2017-05-03 15:30)
PROC: 0FT44ZZ Resection of Gallbladder, Percutaneous Endoscopic Approach (ICD-10-PCS; principal; 2017-05-03 15:30)
DX: K80.65 Calculus of gallbladder and bile duct with chronic cholecystitis with obstruction (principal); K76.0 Fatty (change of) liver, not elsewhere classified; K42.9 Umbilical hernia without obstruction or gangrene; D35.02 Benign neoplasm of left adrenal gland; E66.09 Other obesity due to excess calories; Z68.32 Body mass index [BMI] 32.0-32.9, adult; I10 Essential (primary) hypertension; M47.817 Spondylosis without myelopathy or radiculopathy, lumbosacral region; G44.209 Tension-type headache, unspecified, not intractable
CPT/HCPCS: 96365; A9585; G0378; G0472; G0480; J0690; J1170; J1885; J2060; J2250; J2405; J2704; J3010; Q9967

== ENCOUNTER 2018-05-26 13:28 | Emergency (ER) | payer OTHER ==
[2018-05-26] MEDS ORDERED: ONDANSETRON 4 MG/2 ML VIAL IVP ONE (14:06)
[2018-05-26] MEDS ORDERED: NS 1,000 ML IV ONE (14:06)
--- NOTE | 2018-05-26 14:15 | EDPHY ---
H & P Smoking Status: Never smoked Time Seen by Provider: 05/26/18 13:40 HPI/ROS: HPI Nausea, chills, blood in urine. 52-year-old female by private vehicle. This patient reports that for the last 2 weeks she has had intermittent episodes of chills which primarily occur at night as well as waves of nausea. She reports that she has been eating regularly. She also has had some body aches intermittently. She reports that this morning she developed right inguinal area pain which she described as sharp and cramping followed by gross hematuria and then nausea. She reports that this is now resolved mostly. She has had a partial hysterectomy and a cholecystectomy. She denies increased frequency with urination and pain with urination at this time. No diarrhea. No bloody or melenic stool. ROS: Constitutional: No fever, as above. No weakness. Eyes: No discharge. No changes in vision. ENT: No sore throat. No nasal congestion or rhinorrhea. Respiratory: No cough. No shortness of breath. Cardiac: No chest pain, no palpitations. Gastrointestinal: As above, no vomiting, no diarrhea. Genitourinary: As above. No dysuria or increased frequency with urination. Musculoskeletal: No back pain. No neck pain. As above. Skin: No rashes. Neurological: No headache. No focal weakness or altered sensation. Past medical history: Partial hysterectomy. Cholecystectomy. Social history: Nonsmoker. She is . Currently here by herself. No alcohol. From previous imaging, she tells me that she has kidney stones. Physical Exam: General Appearance: Alert, she is mildly anxious but not in distress. This patient is responding to questions appropriately and in full sentences. This patient appears well-hydrated and well-nourished. Eyes: Pupils equal and round no pallor or injection. No lid edema, erythema or injection. Respiratory: There are no retractions, lungs are clear to auscultation with good air movement bilaterally. Cardiovascular: Regular rate and rhythm. No murmur. Gastrointestinal: Obese habitus. Abdomen is soft and nontender on palpation throughout, no masses, bowel sounds normal. No focal tenderness at McBurney's point. No Angel sign. Neurological: Motor sensory function is grossly intact. Cranial nerves are normal. Gait is normal. Skin: Warm and dry, no rashes. Musculoskeletal: No CVA tenderness bilaterally. Extremities are symmetrical. All joints range without pain or impingement. Psychiatric: No agitation. No depression. Database: EKG: Imaging: CT scan of abdomen and pelvis without contrast: Procedures: Emergency department course: Triage vital signs reviewed. She is hypertensive. Vital signs are otherwise normal. She is afebrile. Her presentation is consistent with a likely kidney stone that dropped on her right side and past. CT noncontrast will be obtained. I feel appendicitis is unlikely. She is declining pain medication at this time. IV will be placed. She will be started on IV normal saline with 500 cc to 1 L to be given over the next hour. She will be given 4 mg of IV Zofran. 3:00 p.m., awaiting results of CT scan. Urinalysis significant for leukocyte esterase and blood. Urine sent for micro and culture. Care turned over to Dr. Ralf Coello at this time. Differential Diagnosis: The differential diagnosis on this patient includes but is not limited to urinary tract infection, pyelonephritis, ureterolithiasis, viral syndrome. This represents a partial list of diagnoses considered. These considerations are based on history, physical exam, past history, reassessment and diagnostic testing. (Moody Enrique) Constitutional: Initial Vital Signs Temperature (C) 36.4 C 05/26/18 13:34 Heart Rate 90 05/26/18 13:34 Respiratory Rate 16 05/26/18 13:34 Blood Pressure 166/108 H 05/26/18 13:34 O2 Sat (%) 97 05/26/18 13:34 O2 Delivery Mode Room Air Allergies/Adverse Reactions: iodine Allergy (Verified 05/26/18 13:40) Itching metronidazole [From Flagyl] Allergy (Verified 05/26/18 13:40) Itching Home Medications: Medication Instructions Recorded Cyclobenzaprine [Flexeril 10 MG 10 mg PO TID PRN #30 tab 05/04/17 (*)] HYDROmorphone HCL [Dilaudid 2 mg 2 mg PO Q4HRS PRN #30 tab 05/04/17 (*)] Cephalexin [Keflex (*)] 500 mg PO TID #21 cap 05/26/18 Hyoscyamine Sulfate [Levsin, 0.125 - 0.25 mg SL Q6 PRN #20 tab 05/26/18 Hyomax-Sl 0.125 mg (*)] Ondansetron Odt [Zofran Odt] 4 - 8 mg PO Q4PRN PRN #4 tab 05/26/18 Medical Decision Making - Diagnostics Imaging Results: Imaging Impressions Abdomen/Pelvis CT 05/26/18 14:06 Impression: 1. Nonobstructing left nephrolithiasis without obstructive uropathy. 2. Mesenteric edema adjacent to normal-appearing small bowel, which can be seen with enteritis, but is nonspecific. 3. Moderate stool in the proximal colon. 4. Additional findings as above. Findings discussed with Dr. Ralf Coello on 05/26/2018 at 15:08. Attention: This CT examination is specifically designed to evaluate patients who are clinically suspected of having acute obstructive uropathy. This examination does not use radiographic contrast and provides only a limited evaluation of the abdomen, pelvis and retroperitoneum. If there is further clinical suspicion for pathological conditions other than obstructive uropathy, a complete CT evaluation of the abdomen and pelvis utilizing intravenous and enteric contrast should be considered. ED Course/Re-evaluation: I spoke with this patient regarding her CT abdomen/pelvis results- nephrolithiasis but no ureteral stones. Mild fatty infiltration of the liver but no other significant abnormal findings. Her left adrenal adenoma is stable in size compared to previous study. The patient feels improved at this point with no active pain. Her nausea is also improved. A review of urine micro sent to the hospital reveals 25-50 white cells per high- power field. Given this pyuria will treat her with oral antibiotics-Keflex. The patient also reveals that she has a long history of IBS that is intermittent cramping without clear triggers in terms of dietary intake. We discussed Levsin and she is interested in trying that medication for her cramps. Patient has not had significant dysuria or frequency. However low level UTI may have been triggering her nausea. She will take Keflex antibiotic , plain fluids, Zofran for nausea if needed and Levsin for cramping. She understands need to return emergency department should she develop any significant worsening despite the treatment plan (Ralf Coello) - Data Points Laboratory Results: 05/26/18 05/26/18 14:26 14:14 POC Sodium 143 mEq/L mEq/L (135-145) POC Potassium 3.5 mEq/L mEq/L (3.3-5.0) POC Chloride 109.0 mEq/L mEq/L (97-110) POC Total CO2 25 mEq/L mEq/L (22-31) POC BUN 11 mg/dL mg/dL (7-23) POC Creatinine 1.0 mg/dL mg/dL (0.6-1.0) POC Glucose 100 mg/dL mg/dL (70-100) POC Calcium 9.7 mg/dL mg/dL (8.5-10.4) POC Total Bilirubin 0.7 mg/dL mg/dL (0.1-1.4) POC AST 27 IU/L IU/L (14-46) POC ALT 19 IU/L IU/L (9-52) POC Alk Phosphatase 87 IU/L IU/L (38-126) POC Total Protein 8.6 g/dL H g/dL (6.3-8.2) POC Albumin 4.3 g/dL g/dL (3.5-5.0) Urine RBC 1-3 /hpf /hpf (0-3) Urine WBC 25-50 /hpf H /hpf (0-3) Ur Epithelial Cells TRACE /lpf /lpf (NONE-1+) Urine Bacteria TRACE /hpf H /hpf (NONE SEEN) Urine Mucus TRACE /lpf /lpf (NONE-1+) Medications Given: Discontinued Medications Sodium Chloride (Ns) 1,000 mls @ 0 mls/hr IV EDNOW ONE; Wide Open PRN Reason: Protocol Stop: 05/26/18 14:07 Last Admin: 05/26/18 14:31 Dose: 1,000 mls Ondansetron HCl (Zofran) 4 mg IVP EDNOW ONE Stop: 05/26/18 14:07 Last Admin: 05/26/18 14:27 Dose: 4 mg Point of Care Test Results: CBC CBC Collection Date 05/26/18 CBC Collection Time 14:14 WBC 7.44 RBC 5.29 HGB 15.7 HCT 47.8 PLT 317 Neut # 4.65 Neut 62.5 LYMPH # 2.21 LYMPH 29.7 MCV 90.4 Chemistry 05/26/18 14:26 POC Sodium 143 mEq/L mEq/L (135-145) POC Potassium 3.5 mEq/L mEq/L (3.3-5.0) POC Chloride 109.0 mEq/L mEq/L (97-110) POC Total CO2 25 mEq/L mEq/L (22-31) POC BUN 11 mg/dL mg/dL (7-23) POC Creatinine 1.0 mg/dL mg/dL (0.6-1.0) POC Glucose 100 mg/dL mg/dL (70-100) POC Calcium 9.7 mg/dL mg/dL (8.5-10.4) POC Total Bilirubin 0.7 mg/dL mg/dL (0.1-1.4) POC AST 27 IU/L IU/L (14-46) POC ALT 19 IU/L IU/L (9-52) POC Alk Phosphatase 87 IU/L IU/L (38-126) POC Total Protein 8.6 g/dL H g/dL (6.3-8.2) POC Albumin 4.3 g/dL g/dL (3.5-5.0) Urine Dip Collection Date 05/26/18 Collection Time 14:00 Specific [place] (1.002-1.030) 1.015 PH (5.0-7.5) 5.5 Leukocytes (Negative) 1+ Nitrites (Negative) Negative Protein (Negative) Negative Glucose (Negative) Negative Ketones (Negative) Negative Urobilnogen (0.2-1.0 EU) 0.2 Bilirubin (Negative) Negative Blood (Negative) 1+ Departure - Departure Disposition: Home, Routine, Self-Care Clinical Impression: Nausea, History of IBS Abdominal pain Qualifiers: Abdominal location: right lower quadrant Qualified Code(s): R10.31 - Right lower quadrant pain Urinary tract infection Qualifiers: Urinary tract infection type: site unspecified Hematuria presence: with hematuria Qualified Code(s): N39.0 - Urinary tract infection, site not specified Condition: Good Instructions: Urinary Tract Infection in Women (ED) Additional Instructions: Diagnosis: Urinary tract infection 2. Abdominal pain-improved 3. Nausea Plan: Drink plenty fluids Zofran if needed for nausea Keflex antibiotic Ibuprofen Tylenol for discomfort if needed Levsin if needed for crampy pain consistent with your IBS Return for any significant worsening despite treatment plan. Follow-up with primary care physician for any significant worsening of her symptoms despite treatment plan Referrals: Carol Downing MD [Primary Care Provider] - As per Instructions Prescriptions: Cephalexin [Keflex (*)] 500 mg PO TID #21 cap Hyoscyamine Sulfate [Levsin, Hyomax-Sl 0.125 mg (*)] 0.125 - 0.25 mg SL Q6 PRN # 20 tab PRN Reason: abdominal cramping Ondansetron Odt [Zofran Odt] 4 - 8 mg PO Q4PRN PRN #4 tab PRN Reason: Vomiting
[2018-05-26 16:59] VITALS: BP 138/100
== END 2018-05-26 16:50 | disposition home or self-care (01) ==
LOC: CED 13:28
DX: N39.0 Urinary tract infection, site not specified (principal); R10.31 Right lower quadrant pain; E86.9 Volume depletion, unspecified
CPT/HCPCS: 74176-PO; 80053-ER; 96361-ER; 96374-ER; J2405